=== PATIENT | male | born 1990 | race Caucasian/White ===

== ENCOUNTER 2024-08-03 20:34 | Emergency (ER) | payer MEDICAID ==
[~2024-08-03] VITALS: Ht 177.8 cm; Wt 85.0 kg
[2024-08-03 20:46] VITALS: TEMP 36.9
[2024-08-03] MEDS: PREDNISONE 20MG TABLET PO STA (22:54)
[2024-08-03] MEDS: ALBUTEROL (0.083%) 2.5MG/3ML NEB HHN STA (23:11)
[2024-08-03] MEDS: IPRATROPIUM BROMIDE (0.02%) 0.5MG/2.5ML NEB HHN STA (23:11)
[2024-08-03 23:13] VITALS: PULSE 84; RESP 18; O2SAT 97
[2024-08-03 23:28] LABS: BASOPHILS % 0.5 % (0.0-2.0); EOSINOPHILS % 4.4 % (0.0-5.0); HEMATOCRIT. 46.5 % (42.0-52.0); HEMOGLOBIN. 15.3 g/dL (14.0-18.0); LYMPHOCYTES % 8.6 % (20.0-50.0); MEAN CORPUSCULAR HEMOGLOBIN 30.1 pg (28.0-32.0); MEAN CORPUSCULAR HGB CONC 32.9 g/dL (31.0-37.0); MEAN CORPUSCULAR VOLUME 91.7 fL (80.0-94.0); MEAN PLATELET VOLUME 7.6 fl (7.4-10.4); MONOCYTES % 7.7 % (2.0-8.0); NEUTROPHILS % 78.8 % (40.0-76.0); PLATELET 322 x1000/uL (130-400); RED BLOOD CELL COUNT 5.07 mill/uL (4.7-6.1); RED CELL DISTRIBUTION WIDTH 12.8 % (11.6-14.6); WHITE BLOOD COUNT 10.6 x1000/uL (4.5-11.0)
[2024-08-03 23:31] LABS: CARBON DIOXIDE 27 mEq/L (21-32); CHLORIDE 103 mEq/L (98-107); POTASSIUM 4.1 mEq/L (3.5-5.1); SODIUM 139 mEq/L (136-145)
[2024-08-03 23:32] LABS: CALCIUM 9.7 mg/dL (8.7-10.4); PROTHROMBIN TIME 10.3 sec (9.6-11.0)
[2024-08-03 23:37] LABS: CREATININE 0.9 mg/dL (0.6-1.3); GLUCOSE 88 mg/dL (70-105); UREA NITROGEN BLOOD 10 mg/dL (9-23)
[2024-08-03 23:38] LABS: ALANINE AMINOTRANSFERASE 13 IU/L (10-49); ASPARTATE AMINOTRANSFERASE 17 IU/L (<34)
[2024-08-03 23:39] LABS: ALBUMIN 4.5 g/dL (3.2-4.8); BILIRUBIN DIRECT 0.2 mg/dL (<=3.0); BILIRUBIN TOTAL 0.9 mg/dL (0.1-1.0); PROTEIN TOTAL 7.9 g/dL (6.0-8.3)
[2024-08-04] MEDS ORDERED: IBUP1TAB11 MT (00:55)
[2024-08-04] MEDS ORDERED: BENZ200C52 MT (00:55)
[2024-08-04 02:44] VITALS: BP 116/60; PULSE 102; RESP 14; O2SAT 98
== END 2024-08-04 02:45 | disposition home or self-care (01) ==
LOC: ER 20:34
DX: J06.9 Acute upper respiratory infection, unspecified (principal)
CPT/HCPCS: 80076; 80048; 85025; 85610; 36415; 71045; 94640; 99284; J7512; Z7610 ×2